=== PATIENT | female | born 1995 | race Caucasian/White ===

== ENCOUNTER 2017-07-23 18:16 | Emergency (ER) | payer MEDICAID, OTHER ==
[~2017-07-23] VITALS: Ht 170.2 cm; Wt 56.4 kg
[2017-07-23] MEDS ORDERED: LEVO1TAB58 PO (18:29)
[2017-07-23 19:27] VITALS: BP 116/81
== END 2017-07-23 19:43 | disposition home or self-care (01) ==
LOC: EMS 18:18
DX: L03.115 Cellulitis of right lower limb (principal); R10.31 Right lower quadrant pain
CPT/HCPCS: 99283

== ENCOUNTER 2017-09-18 12:58 | Emergency (ER) | payer OTHER ==
[~2017-09-18] VITALS: Ht 170.2 cm; Wt 55.9 kg
[~2017-09-18 12:58] MED LIST: LEVO1TAB58 PO
[2017-09-18 13:50] VITALS: BP 141/90
[2017-09-18] MEDS: DEXAMETHASONE SOD PHOS 4 MG/ML VIAL IM ONE ×2 (14:12→14:17)
[2017-09-18] MEDS ORDERED: DEXAMETHASONE SOD PHOS 4 MG/ML VIAL IM ONE (14:15)
== END 2017-09-18 14:57 | disposition home or self-care (01) ==
LOC: EMS 12:59
DX: J02.8 Acute pharyngitis due to other specified organisms (principal); B97.89 Other viral agents as the cause of diseases classified elsewhere
CPT/HCPCS: 87430; 96372; 99283; J1100

== ENCOUNTER 2017-12-20 20:10 | Emergency (ER) | payer OTHER ==
[~2017-12-20] VITALS: Ht 170.2 cm; Wt 56.4 kg
[2017-12-20 20:40] LABS: APPEARANCE,URINE CLOUDY (CLEAR); BILIRUBIN,URINE NEGATIVE (NEGATIVE); GLUCOSE, URINE (UA) NEGATIVE (NEGATIVE); HCG,QUAL RESULT NEGATIVE (NEGATIVE); KETONES,URINE NEGATIVE (NEGATIVE); LEUKOCYTE ESTERASE ,URINE MODERATE (NEGATIVE); NITRATE,URINE NEGATIVE (NEGATIVE); OCCULT BLOOD,URINE NEGATIVE (NEGATIVE); PROTEIN,URINE TRACE (NEGATIVE)
[2017-12-20 20:48] LABS: BACTERIA,URINE Few /HPF (None Seen); RBC,URINE 0-2 /HPF (0-2); SQUAMOUS EPITHELIAL CELL,UR Many /LPF (None Seen)
[2017-12-20] MEDS ORDERED: FLUCONAZOLE 150 MG TABLET PO ONE (21:00)
[2017-12-20 21:15] VITALS: BP 119/74
== END 2017-12-20 21:31 | disposition home or self-care (01) ==
LOC: EMS 20:11
DX: N39.0 Urinary tract infection, site not specified (principal); B37.3 Candidiasis of vulva and vagina
CPT/HCPCS: 87086; 99284

== ENCOUNTER 2017-12-27 18:36 | Emergency (ER) | payer OTHER ==
[~2017-12-27] VITALS: Ht 170.2 cm; Wt 55.9 kg
[2017-12-27 21:33] LABS: APPEARANCE,URINE CLEAR (CLEAR); BILIRUBIN,URINE NEGATIVE (NEGATIVE); GLUCOSE, URINE (UA) NEGATIVE (NEGATIVE); KETONES,URINE NEGATIVE (NEGATIVE); LEUKOCYTE ESTERASE ,URINE MODERATE (NEGATIVE); NITRATE,URINE NEGATIVE (NEGATIVE); OCCULT BLOOD,URINE NEGATIVE (NEGATIVE); PROTEIN,URINE NEGATIVE (NEGATIVE); UROBILINOGEN,URINE 0.2 mg/dL (<=1.0)
[2017-12-27 21:36] LABS: BACTERIA,URINE Few /HPF (None Seen); RBC,URINE 0-2 /HPF (0-2); SQUAMOUS EPITHELIAL CELL,UR Moderate /LPF (None Seen)
[2017-12-27] MEDS ORDERED: AZITHROMYCIN 250 MG TABLET PO ONE (22:15)
[2017-12-27] MEDS ORDERED: CefTRIAXone SODIUM 1 GM/VIAL IM ONE (22:15)
[2017-12-27] MEDS ORDERED: LIDOCAINE HCL/PF 1% 2 ML VIAL IM ONE (22:30)
[2017-12-27 23:08] VITALS: BP 117/71
== END 2017-12-27 23:11 | disposition home or self-care (01) ==
LOC: EMS 18:38
DX: N72 Inflammatory disease of cervix uteri (principal); R03.0 Elevated blood-pressure reading, without diagnosis of hypertension
CPT/HCPCS: 81001; 87086; 87210; 87491; 87591; 96372; 99284; J0696; J3490

== ENCOUNTER 2018-02-01 20:54 | Emergency (ER) | payer OTHER ==
[~2018-02-01] VITALS: Ht 170.2 cm; Wt 56.5 kg
[2018-02-01 21:14] VITALS: BP 127/74
== END 2018-02-01 21:55 | disposition home or self-care (01) ==
LOC: EMS 20:54
DX: H10.9 Unspecified conjunctivitis (principal); R03.0 Elevated blood-pressure reading, without diagnosis of hypertension
CPT/HCPCS: 99283